=== PATIENT | female | born 1990 | race African-American/Black ===

== ENCOUNTER 2022-10-13 16:40 | Emergency (ER) | payer OTHER ==
[~2022-10-13] VITALS: Ht 165.1 cm; Wt 96.0 kg
[2022-10-13 16:45] VITALS: BP 115/62
[2022-10-13] MEDS ORDERED: CEFTRIAXONE SODIUM 500 MG/VIAL IM ONE (18:00)
[2022-10-13] MEDS ORDERED: TC1U15 TP (18:03)
[2022-10-13] MEDS ORDERED: DOXY100C5 MT (18:03)
[2022-10-13 19:10] LABS: CLARITY URINE CLEAR (CLEAR); COLOR URINE YELLOW (YELLOW); KETONES URINE TRACE (NEGATIVE); LEUKOCYTE ESTERASE URINE NEGATIVE (NEGATIVE); NITRITE URINE NEGATIVE (NEGATIVE); OCCULT BLOOD URINE NEGATIVE (NEGATIVE); PH URINE 5.5 (4.5-8.0); PROTEIN URINE NEGATIVE (NEGATIVE); SPECIFIC GRAVITY URINE 1.024 (1.005-1.030); UROBILINOGEN URINE 0.2 E.U./dL (0.2-1.0)
== END 2022-10-13 18:43 | disposition home or self-care (01) ==
LOC: ER 16:40
DX: R21 Rash and other nonspecific skin eruption (principal); Z11.3 Encounter for screening for infections with a predominantly sexual mode of transmission
CPT/HCPCS: 81003; 81025; 87491; 87591; 96372; 99283; J0696